=== PATIENT | male | born 1950 | race Caucasian/White ===

== ENCOUNTER → 2017-01-04 | Outpatient (CLI) | payer MEDICARE ==
[~2017-01-04] MED LIST: ALPRAZOLAM1 MG PO; AMBIEN10 MG PO; AMIODARONE HCL200 MG PO; ASPIRIN325 MG PO; Ambien PO; Ascorbic Acid,Ester- PO; BACTRIM,SEPT1 TABLE1 PO; CELEXA40 MG PO; CITALOPRAM PO; COLACE100 MG PO; COUMADIN,JANTOVE1 MG PO; COUMADIN3 M1 PO; CRESTOR10 MG PO; CRESTOR20 MG PO; CYANOCOBALAM1000 MCG PO; Colace PO; DIGITEK125 MC2 PO; DILAUDID2 MG PO; DOXAZOSIN PO; DULCOLAX10 MG PR; ENDOCET 5-3251 EACH PO; Ecotrin PO; FENTANYL BC; FLEET ENEMA-AD118 ML PR; Folvite PO; GABAPENTIN100 MG PO; HYDROMORPHONE PUMP; JANUVIA100 MG PO; Januvia PO; LIDODERM 5% P1 PATCH TD; LOPRESSOR25 MG PO; LOVENOX40 MG/0.4 SC; Lanoxin,Digitek PO; Levothroid,Synthroid PO; Lopressor PO; Lotrisone TP; MARINOL5 MG; MILK OF MAGN PO; MIRALAX255 GM PO; MORPHINE PUMP; MS CONTIN100 MG PO; Miralax, Glycolax PO; NEXIUM40 MG PO; OXYCONTIN15 MG PO; OXYCONTIN40 MG PO; OXYCONTIN60 MG PO; OXYCONTIN80 MG PO; Oscal 500 w/Vitamin PO; OxyCONTIN PO; PACERONE200 MG PO; PRILOSEC20 MG PO; PRISTIQ100 MG PO; PRISTIQ50 MG PO; PROSCAR5 MG PO; Paxil PO; Phenergan PO; ROXICODONE30 MG PO; SENOKOT S,PE1 TABLET PO; SINGULAIR10 MG PO; SOMA350 M1 PO; SOMA350 MG PO; SYNTHROID175 MCG PO; Senokot S,Pericolace PO; Soma PO; TYLENOL EXTRA500 MG PO; TYLENOL REGULA325 MG PO; Theragran PO; Tylenol Regular Stre PO; Vancomycin IV; Xanax PO; oxyCODONE PO
== END | disposition home or self-care (01) ==
LOC: CDC 14:31
DX: R94.31 Abnormal electrocardiogram [ECG] [EKG] (principal)
CPT/HCPCS: 93000

== ENCOUNTER 2017-01-31 12:34 | Observation (INO) | payer OTHER ==
[~2017-01-31] VITALS: Ht 182.9 cm; Wt 65.2 kg
[2017-01-31 14:59] LABS: EOSINOPHIL (%) 3.3 % (0-5); EOSINOPHIL COUNT 0.1 K/uL (0-0.3); HEMATOCRIT 37.2 % (38.0-50.0); IMMATURE GRANULOCYTE (%) 0.3 % (0.0-0.7); LYMPHOCYTE COUNT 1.2 K/uL (1.0-2.8); MCH 30.5 PG (29.0-34.0); MCHC 32.3 G/DL (30.0-36.0); MCV 94.4 FL (86-99); MONOCYTE (%) 8.2 % (3-12); MONOCYTE COUNT 0.3 K/uL (0-0.8); NEUTROPHIL (%) 54.7 % (45-76); RBC DIS.WIDTH-CV 13.6 % (11.8-14.6); RBC DIS.WIDTH-SD 47.8 % (39-53); RED BLOOD COUNT 3.94 M/uL (4.00-5.50); WHITE BLOOD COUNT 3.7 K/uL (4.1-10.2)
[2017-01-31 15:14] LABS: CHLORIDE 97 mEq/L (99-109); POTASSIUM 4.4 mEq/L (3.7-5.4); SODIUM 135 mEq/L (136-147)
[2017-01-31 15:15] LABS: GLUCOSE 88 mg/dL (70-99)
[2017-01-31 15:17] LABS: ANION GAP 16 MEQ/L (2-14)
[2017-01-31 15:19] LABS: GFR ESTIMATE (CALCULATED) > 59 mL/min/
[2017-01-31 15:20] LABS: UREA NITROGEN (BUN) 8 mg/dL (9-23)
[2017-01-31 15:23] LABS: TROP-I INTERPRETATION NEGATIVE; TROPONIN-I < 0.01 ng/mL (0.0-0.30)
[2017-01-31 15:53] LABS: PLATELET COUNT UNABLE TO REPORT K/uL (156-360)
[2017-01-31 16:07] LABS: ADD MIUA? NO; BILIRUBIN NEGATIVE; BLOOD NEGATIVE; COLOR YELLOW ((YELLOW)); GLUCOSE (STRIP) NEGATIVE; KETONES NEGATIVE; LEUKOCYTES NEGATIVE; NITRITE NEGATIVE; PROTEIN (STRIP) NEGATIVE; SPECIFIC GRAVITY 1.015 (1.000-1.030); UCUL ADDED? NO; UROBILINOGEN 0.2 MG/DL (0.2-1.0)
[2017-01-31 16:23] LABS: INTER. NORMALIZED RATIO 1.1; PROTHROMBIN TIME 12.2 SEC (10.2-12.9)
[2017-01-31 16:26] LABS: PTT 32.3 SEC (25-37)
[2017-01-31] MEDS ORDERED: ZOLPIDEM TARTRA10 MG PO (19:08)
[2017-01-31] MEDS ORDERED: DULCOLAX5 MG PO (19:23)
[2017-01-31] MEDS ORDERED: SYNTHROID150 MCG PO (19:24)
[2017-01-31] MEDS ORDERED: OXYCODONE HCL30 MG PO (19:25)
[2017-01-31] MEDS ORDERED: CEPHALEXIN500 MG PO (19:26)
[2017-01-31] MEDS ORDERED: SOMA350 MG PO (19:26)
[2017-01-31] MEDS ORDERED: LIDOCAINE700 MG TD (19:27)
[2017-01-31] MEDS ORDERED: PROMETHAZINE HC25 M1 PO (19:27)
[2017-01-31] MEDS ORDERED: MIRALAX255 GM PO (19:28)
[2017-01-31] MEDS ORDERED: MORPHINE PUMP (19:30)
[2017-01-31 19:43] VITALS: BP 121/77
[2017-01-31 20:09] LABS: Estimated Average Glucose 105 mg/dL (70-123); HEMOGLOBIN A1c (GLYCOHEMOGLOB) 5.3 % HGB (Below 5.7)
[2017-01-31 20:47] LABS: CREATINE KINASE 115 IU/L (1-294); TOTAL CK 115 IU/L (1-294)
[2017-01-31 21:21] LABS: HDL CHOLESTEROL 54 MG/DL (Desirable>=40); LDL CHOLESTEROL 201 mg/dL (Desirable<100); NON-HDL CHOLESTEROL 219 mg/dL (Desirable<160); TOTAL CHOLESTEROL 273 mg/dL (Desirable<200); TRIGLYCERIDES 92 MG/DL (Normal: <150)
[2017-01-31 22:09] LABS: DIGOXIN 1.2 ng/mL (0.8-2.0)
[2017-01-31 23:53] VITALS: BP 110/65; BP 112/67
[2017-02-01 04:34] VITALS: BP 111/70
[2017-02-01 05:56] LABS: HEMATOCRIT 33.6 % (38.0-50.0); MCH 30.8 PG (29.0-34.0); MCHC 32.4 G/DL (30.0-36.0); MCV 94.9 FL (86-99); MEAN PLAT.VOLUME 8.6 uM^3 (9.0-12.4); PLATELET COUNT 333 K/uL (156-360); RBC DIS.WIDTH-CV 13.8 % (11.8-14.6); RBC DIS.WIDTH-SD 48.4 % (39-53); RED BLOOD COUNT 3.54 M/uL (4.00-5.50); WHITE BLOOD COUNT 3.1 K/uL (4.1-10.2)
[2017-02-01 06:26] LABS: ALKALINE PHOSPHATASE 77 IU/L (3-129); ANION GAP 10 MEQ/L (2-14); CHLORIDE 103 MEQ/L (99-109); GFR ESTIMATE (CALCULATED) > 59 mL/min/; GLUCOSE 64 mg/dL (70-99); POTASSIUM 4.4 MEQ/L (3.7-5.4); SAMPLE HEMOLYSIS CHECK 0; SAMPLE ICTERIC CHECK 0; SAMPLE LIPEMIA CHECK 0; SODIUM 139 MEQ/L (136-147); TOTAL BILIRUBIN 0.4 MG/DL (0.0-1.0); UREA NITROGEN (BUN) 6 mg/dL (9-23)
[2017-02-01 07:20] LABS: ANISOCYTOSIS 2+; MACROCYTES 2+; PLATELET CLUMPS PRESENT - PLATELET COUNT APPEARS ADQ.; POIKILOCYTOSIS 1+
[2017-02-01 08:44] VITALS: BP 132/73
[2017-02-01 11:00] VITALS: BP 139/75
[2017-02-01 16:00] VITALS: BP 122/74
[2017-02-01 20:00] VITALS: BP 115/57; BP 133/77
[2017-02-01 22:43] LABS: C DIFF TOXIN NEGATIVE (NEGATIVE)
[2017-02-01 22:44] LABS: PROBE CHECK PASS; SPECIMEN PROCESSING CONTROL PASS
[2017-02-02] VITALS: BP 127/86
[2017-02-02 03:20] VITALS: BP 117/72
[2017-02-02 05:17] LABS: EOSINOPHIL (%) 0.5 % (0-5); HEMATOCRIT 31.3 % (38.0-50.0); IMMATURE GRANULOCYTE (%) 0.3 % (0.0-0.7); INSTRUMENT ABS NEUTROPHIL CT 4.8 K/uL; LYMPHOCYTE COUNT 0.9 K/uL (1.0-2.8); MCH 31.5 PG (29.0-34.0); MCHC 33.9 G/DL (30.0-36.0); MCV 93.2 FL (86-99); MEAN PLAT.VOLUME 8.4 uM^3 (9.0-12.4); MONOCYTE (%) 7.9 % (3-12); MONOCYTE COUNT 0.5 K/uL (0-0.8); NEUTROPHIL (%) 76.9 % (45-76); NEUTROPHIL COUNT 4.8 K/uL (1.8-6.4); PLATELET COUNT 370 K/uL (156-360); RBC DIS.WIDTH-CV 13.7 % (11.8-14.6); RBC DIS.WIDTH-SD 47.2 % (39-53); RED BLOOD COUNT 3.36 M/uL (4.00-5.50); WHITE BLOOD COUNT 6.2 K/uL (4.1-10.2)
[2017-02-02 07:55] VITALS: BP 122/79
[2017-02-02] MEDS ORDERED: IMODIUM A-D2 M2 PO (12:30)
[2017-02-02 12:34] VITALS: BP 130/74
== END 2017-02-02 13:23 | disposition home or self-care (01) ==
LOC: EME 12:34 → EDOF 17:34 → 5WEST 17:34 → ENRESERV 17:36 → 5WEST 19:28 → ENPENDDIS 02-02 → 5WEST 02-02 13:23
PROVIDERS: Emergency Medicine; Internal Medicine; Physician Assistant Medical; Student in an Organized Health Care Education/Training Program
DX: R55 Syncope and collapse (principal); I48.0 Paroxysmal atrial fibrillation; G89.29 Other chronic pain; Z91.81 History of falling; S62.512D Displaced fracture of proximal phalanx of left thumb, subsequent encounter for fracture with routine healing; F32.9 Major depressive disorder, single episode, unspecified; Z79.891 Long term (current) use of opiate analgesic; R26.2 Difficulty in walking, not elsewhere classified; Z96.659 Presence of unspecified artificial knee joint; Z96.649 Presence of unspecified artificial hip joint
CPT/HCPCS: 70450; 73080; 73130; 74176; 80048; 80053; 80061; 80162; 81003; 82272; 82550 91; 82553; 83036; 84484; 85025; 85027; 85610; 85730; 87493; 93005; 93306; 95819; 99281; 99285; G0378; J1644; J7030